=== PATIENT | female | born 1965 | race Caucasian/White ===

== ENCOUNTER 2018-10-03 09:34 | Emergency (ER) | payer BC ==
--- NOTE | 2018-10-03 10:01 | ED ---
Hypertension - HPI Summary HPI Summary: This patient is a 53 year old F presenting to [facility] accompanied by with a chief complaint of elevated blood pressure that began prior to arrival. The patient rates the pain 0/10 in severity. Symptoms aggravated by nothing. Symptoms alleviated by nothing. Patient reports anxiety. Patient denies CP, SOB , vision changes, numbness, weakness, and N/V/D. Patient states her systolic pressure was over 200. - History of Current Complaint Chief Complaint: EDHypertension Stated Complaint: HIGH BLOOD PRESSURE Time Seen by Provider: 10/03/18 09:51 Hx Obtained From: Patient Onset/Duration: Started Hours Ago, Atraumatic, Still Present Timing: Constant Reported Blood Pressure Prior To Arrival: Patient states her systolic pressure was over 200. Aggravating Factor(s): Nothing Alleviating Factor(s): Nothing Associated Signs & Symptoms: Anxiety/Stress, Other: - Nothing CP, SOB, vision changes, numbness, weakness, and N/V/D - Allergies/Home Medications Allergies/Adverse Reactions: Allergies Allergy/AdvReac Type Severity Reaction Status Date / Time No Known Allergies Allergy Verified 10/03/18 09:40 PMH/Surg Hx/FS Hx/Imm Hx Previously Healthy: No Endocrine/Hematology History: Denies: Hx Diabetes, Hx Thyroid Disease Cardiovascular History: Reports: Hx Hypertension, Other Cardiovascular Problems/ Disorders - BILATERAL VARICOSE VEINS LOWER LEGS Respiratory History: Denies: Hx Asthma, Hx Chronic Obstructive Pulmonary Disease (COPD) GI History: Denies: Hx Ulcer Sensory History: Reports: Hx Cataracts Denies: Hx Contacts or Glasses, Hx Hearing Aid Opthamlomology History: Reports: Hx Cataracts Denies: Hx Contacts or Glasses - Cancer History Hx Chemotherapy: No Hx Radiation Therapy: No - Surgical History Surgery Procedure, Year, and Place: 2011 BILATERAL CATARACT EXCISION WITH IOL IMPLANTS, [facility]. 2006 PARTIAL HYSTERECTOMY, [facility] – [place] Hx Anesthesia Reactions: Yes - POSSIBLE BLOOD PRESSURE ISSUE AFTER HYSTERECTOMY Infectious Disease History: No Infectious Disease History: Denies: Hx Clostridium Difficile, Hx Hepatitis, Hx Human Immunodeficiency Virus (HIV), Hx of Known/Suspected MRSA, Hx Shingles, Hx Tuberculosis, History Other Infectious Disease, Traveled Outside the [place] in Last 30 Days - Family History Known Family History: Positive: None Negative: Cardiac Disease, Hypertension, Diabetes - Social History Occupation: Employed Full-time Lives: With Family Alcohol Use: Occasionally Hx Substance Use: No Substance Use Type: Reports: None Hx Tobacco Use: Yes Smoking Status (MU): Heavy Every Day Tobacco Smoker Type: Cigarettes Amount Used/How Often: 1 ppd Review of Systems Eyes: Negative Positive: Other - Positive elevated blood pressure. Negative: Chest Pain Negative: Shortness Of Breath Negative: Vomiting, Diarrhea, Nausea Negative: Weakness, Numbness Positive: Anxious All Other Systems Reviewed And Are Negative: Yes Physical Exam - Summary Physical Exam Summary: Appearance: Well appearing, no pain distress Skin: warm, dry, reflects adequate perfusion Head/face: normal Eyes: EOMI, CARIDAD ENT: mucous membranes moist Neck: supple, non-tender Respiratory: CTA, breath sounds present Cardiovascular: RRR, pulses symmetrical Abdomen: non-tender, soft Bowel Sounds: present Musculoskeletal: normal, strength/ROM intact Neuro: normal, sensory motor intact, A&Ox3 Triage Information Reviewed: Yes Vital Signs On Initial Exam: Initial Vitals Temp Pulse Resp BP Pulse Ox 98 F 96 16 172/90 96 10/03/18 09:40 10/03/18 09:40 10/03/18 09:40 10/03/18 09:40 10/03/18 09:40 Vital Signs Reviewed: Yes Diagnostics - Vital Signs Vital Signs Temp Pulse Resp BP Pulse Ox 10/03/18 09:40 98 F 96 16 172/90 96 - Laboratory Lab Statement: Any lab studies that have been ordered have been reviewed, and results considered in the medical decision making process. - EKG 0942 Cardiac Rate: NL EKG Rhythm: Sinus Rhythm - [address] Segment: Normal Ectopy: None Summary of EKG Findings: An EKG taken at 0942 reveals normal sinus rhythm at 85 BPM with normal axis, normal interval, and normal ST Hypertension Course/Dx - Course Course Of Treatment: Patient with asymptomatic hypertension with diagnosis of the same. She is only on 2.5 mg of Ramapril. EKG normal. She will follow-up first thing on Friday with her doctor. Until then she will Journal all blood pressure results. - Diagnoses Provider Diagnoses: History of hypertension, Elevated blood pressure reading Discharge - Sign-Out/Discharge Documenting (check all that apply): Patient Departure - Discharge home - Discharge Plan Condition: Improved Disposition: HOME Patient Education Materials: Hypertension (ED) Referrals: Gregg Figueredo MD [Primary Care Provider] - Additional Instructions: Cut back on smoking. Journal your blood pressures throughout the weekend and report tear doctor Friday morning. Have a follow-up appointment made then. Return with chest pain, shortness of breath, headache, blurred vision, new symptoms or other concerns as discussed. - Billing Disposition and Condition Condition: IMPROVED Disposition: Home - Attestation Statements Document Initiated by Scribe: Yes Documenting Scribe: Yari Teran Provider For Whom Scribe is Documenting (Include Credential): Dr. Dionisio Mattson MD Scribe Attestation: IYari, scribed for Dr. Dionisio Mattson MD on 10/03/18 at 1214. Scribe Documentation Reviewed: Yes Provider Attestation: The documentation as recorded by the Yari douglas accurately reflects the service I personally performed and the decisions made by me, Dr. Dionisio Mattson MD
[2018-10-03 10:15] VITALS: BP 174/80
== END 2018-10-03 10:14 | disposition home or self-care (01) ==
LOC: ED 09:34
DX: I10 Essential (primary) hypertension (principal); F17.210 Nicotine dependence, cigarettes, uncomplicated
CPT/HCPCS: 93005; 99282

== ENCOUNTER 2019-01-25 12:24 | Emergency (ER) | payer BC ==
[2019-01-25 15:09] VITALS: BP 148/98
--- NOTE | 2019-01-25 17:33 | ED ---
Lower Extremity - HPI Summary HPI Summary: Patient is a 53-year-old female presenting to the ED after rolling her left ankle. - History of Current Complaint Chief Complaint: EDExtremityLower Stated Complaint: LEFT ANKLE INJURY Pain Intensity: 6 - Allergies/Home Medications Allergies/Adverse Reactions: Allergies Allergy/AdvReac Type Severity Reaction Status Date / Time No Known Allergies Allergy Verified 01/25/19 12:30 Home Medications: Home Medications Benazepril/Hydrochlorothiazide [Benazepril-Hctz 10-12.5 mg Tab] 1 tab PO DAILY 01/25/19 [History Confirmed 01/25/19] PMH/Surg Hx/FS Hx/Imm Hx Endocrine/Hematology History: Denies: Hx Diabetes, Hx Thyroid Disease Cardiovascular History: Reports: Hx Hypertension, Other Cardiovascular Problems/ Disorders - BILATERAL VARICOSE VEINS LOWER LEGS Respiratory History: Denies: Hx Asthma, Hx Chronic Obstructive Pulmonary Disease (COPD) GI History: Denies: Hx Ulcer Sensory History: Reports: Hx Cataracts Denies: Hx Contacts or Glasses, Hx Hearing Aid Opthamlomology History: Reports: Hx Cataracts Denies: Hx Contacts or Glasses - Cancer History Hx Chemotherapy: No Hx Radiation Therapy: No - Surgical History Surgery Procedure, Year, and Place: 2011 BILATERAL CATARACT EXCISION WITH IOL IMPLANTS, [facility]. 2006 PARTIAL HYSTERECTOMY, [facility] Hx Anesthesia Reactions: Yes - POSSIBLE BLOOD PRESSURE ISSUE AFTER HYSTERECTOMY Infectious Disease History: No Infectious Disease History: Denies: Hx Clostridium Difficile, Hx Hepatitis, Hx Human Immunodeficiency Virus (HIV), Hx of Known/Suspected MRSA, Hx Shingles, Hx Tuberculosis, History Other Infectious Disease, Traveled Outside the [place] in Last 30 Days - Family History Known Family History: Positive: None Negative: Cardiac Disease, Hypertension, Diabetes - Social History Alcohol Use: Occasionally Hx Substance Use: No Substance Use Type: Reports: None Hx Tobacco Use: Yes Smoking Status (MU): Heavy Every Day Tobacco Smoker Type: Cigarettes Amount Used/How Often: 1 ppd Physical Exam Vital Signs On Initial Exam: Initial Vitals Temp Pulse Resp BP Pulse Ox 97.9 F 116 16 188/103 97 01/25/19 12:28 01/25/19 12:28 01/25/19 12:28 01/25/19 12:28 01/25/19 12:28 Diagnostics - Vital Signs Vital Signs Temp Pulse Resp BP Pulse Ox 01/25/19 14:35 99.1 F 99 16 148/98 97 01/25/19 12:28 97.9 F 116 16 188/103 97 - Laboratory Lab Statement: Any lab studies that have been ordered have been reviewed, and results considered in the medical decision making process. Discharge - Discharge Plan Condition: Stable Disposition: HOME Patient Education Materials: Ankle Sprain (ED) Forms: *Work Release Referrals: Gregg Figueredo MD [Primary Care Provider] - Additional Instructions: Use gel splint 2-3 days Ibuprofen 600 mg 3 times daily Elevate when possible - Billing Disposition and Condition Condition: STABLE Disposition: Home
== END 2019-01-25 14:35 | disposition home or self-care (01) ==
LOC: ED 12:24
DX: S93.402A Sprain of unspecified ligament of left ankle, initial encounter (principal); I10 Essential (primary) hypertension; F17.210 Nicotine dependence, cigarettes, uncomplicated; X50.9XXA Other and unspecified overexertion or strenuous movements or postures, initial encounter; Y92.9 Unspecified place or not applicable
CPT/HCPCS: 99282